=== PATIENT | female | born 1950 | race Hispanic/Latino ===

== ENCOUNTER 2019-11-16 15:22 | Emergency (ER) | payer MEDICARE, SELFPAY ==
--- NOTE | ~2019-11-16 | XR_ITS ---
EXAMINATION: XR ankle LT min 3V EXAM DATE: 11/16/2019 15:45 INDICATION: Initial encounter following injury, with pain of the left ankle. TECHNIQUE: Left ankle frontal, lateral and oblique projections obtained and reviewed. There is no pr ior study for comparison. FINDINGS: Probable acute closed posttraumatic fracture through the left radial distal metaphysis exte nding into the ankle joint, distal tibiofibular syndesmosis. This is only identified on the lateral p rojection, finding indicated for review. Overlying soft tissue swelling. IMPRESSION: Probable acute left distal fibular metaphyseal fracture into the ankle joint. Consider CT scan for confirmation. Reviewed, dictated and finalized at location A. IMPRESSION: Probable acute left distal fibular metaphyseal fracture into the an kle joint. Consider CT scan for confirmation.
--- NOTE | ~2019-11-16 | CT_ITS ---
EXAMINATION: CT LE LT wo con EXAM DATE: 11/16/2019 16:26 INDICATION: Left ankle fractures. Abnormal x-ray. TECHNIQUE: Spiral CT LE LT was performed without contrast. Axial, coronal and sagittal images were reviewed. The dose-length product (DLP) for this examination was 376.05 mGy-cm. The exposure was t ailored according to patient size (auto mA exposure control), and iterative reconstruction (ASIR) was used as additional dose reduction technique. Correlation is made to ankle x-ray same day. FINDINGS: Acute closed posttraumatic fracture of the left radial distal metaphysis extending into th e ankle mortise, without displacement. There is also a posterior malleolar acute closed posttraumatic and essentially nondisplaced fracture, with fracture line extending vertically about 1.8 cm in from the posterior malleolar cortex along the tibial plafond. The mortise relationship does appear intact. Recommend orthopedic consult. Talus, calcaneus are intact. There is an ankle joint effusion. IMPRESSION: 1. Acute left posterior malleolar/tibial plafond fracture. 2. Acute distal fibular metaphyseal fracture into mortise. Reviewed, dictated and finalized at location A.
[2019-11-16 15:29] VITALS: BP 132/81; PULSE 81; RESP 16; TEMP 36.5; O2SAT 99
--- NOTE | 2019-11-16 16:17 | ED.LOWEXIN ---
HPI - Extremity Injury (Lower) General Chief Complaint: Extremity Injury, Lower <Rosa Matthews PA-C - Last Filed: 11/16/19 18:43> Stated Complaint: TWISTED OR SPRAINED ANKLE <ROSA M Oliveros Last Filed: 11/16/19 18:43> Time Seen by Provider: 11/16/19 15:49 <Rosa Matthews PA-C - Last Filed: 11/16/19 18:43> Source: patient and family <Rosa Matthews PA-C - Last Filed: 11/16/19 18:43> Limitations: no limitations <ROSA M Oliveros Last Filed: 11/16/19 18:43> History of Present Illness HPI Narrative: Patient presents with chief complaint of left ankle pain after slipping in shower and inverting her ankle. Patient reports swelling and difficulty with weightbearing. Patient denies loss of sensation or reports pain with plantar and dorsiflexion. Patient denies prior fracture to this area. Patient reports some tenderness to lateral aspect but not the medial aspect. Patient also reports discomfort dorsally up. the extremity. Patient denies any other areas of injury. <Rosa Matthews PA-C - Last Filed: 11/16/19 18:43> Related Data Allergies/Adverse Reactions: Allergies Allergy/AdvReac Type Severity Reaction Status Date / Time acetaminophen Allergy Unknown Verified 11/16/19 15:29 <Rosa Matthews PA-C - Last Filed: 11/16/19 18:43> Review of Systems Review of Systems: Narrative: CONSTITUTIONAL: Denies fever, chills, or sweats. EYES: Denies visual changes, redness, or discharge. ENT: Denies rhinorrhea, congestion, sore throat, or otalgia. CARDIOVASCULAR: Denies chest pain, palpitations, or edema. RESPIRATORY: Denies cough or dyspnea. GASTROINTESTINAL: Denies abdominal pain, nausea, vomiting, or diarrhea. GENITOURINARY: Denies dysuria or hematuria. SKIN: Denies rash or itching. MUSCULOSKELETAL: Reports left ankle pain denies back pain or myalgia. NEUROLOGIC: Denies headache, numbness, dizziness, or weakness. PSYCHIATRIC: Denies anxiety or depression. <ROSA M Oliveros Filed: 11/16/19 18:43> [facility] Social History Social History: Social History Gender identity (if verbalized by the patient): Female <Rosa Matthews PA-C - Last Filed: 11/16/19 18:43> Exam Narrative: Exam Narrative: GENERAL: Well-appearing, well-nourished, and in no acute distress. HEAD: Normocephalic, atraumatic. EYES: PERRLA and EOMI. ENT: Nares clear, no rhinorrhea or epistaxis. Mucous membranes moist. Oropharynx without tonsillar hypertrophy exudate or other lesions. Bilateral TMs pearly [place] nonbulging NECK: Supple. No adenopathy or masses. No carotid bruits or JVD CHEST: Clear to auscultation. No respiratory distress. No wheezes rales or rhonchi HEART: Regular rate and rhythm. No murmur heard. Normal peripheral pulses. ABDOMEN: Soft, nontender, nondistended, normal active bowel sounds. EXTREMITIES: Edema to the lateral aspect of left ankle with tenderness laterally to the dorsal aspect. Pain with plantar flexion mild discomfort with dorsiflexion. No open wounds appreciated. SKIN: Warm, dry, no rash. NEURO: No focal deficits. Alert and oriented x3. PSYCH: Normal mood and affect. <Rosa Matthews PA-C - Last Filed: 11/16/19 18:43> Course Vital Signs Vital signs: Vital Signs Temperature 36.5 C 11/16/19 15:29 Pulse Rate 81 11/16/19 15:29 Respiratory Rate 16 11/16/19 15:29 Blood Pressure 132/81 11/16/19 15:29 Pulse Oximetry 99 11/16/19 15:29 Temperature 36.6 C 11/16/19 18:43 Pulse Rate 72 11/16/19 18:43 Respiratory Rate 18 11/16/19 18:43 Blood Pressure 137/75 11/16/19 18:43 Pulse Oximetry 98 11/16/19 18:43 <Rosa Matthews PA-C - Last Filed: 11/16/19 18:43> Vital Signs Temperature 36.5 C 11/16/19 15:29 Pulse Rate 81 11/16/19 15:29 Respiratory Rate 16 11/16/19 15:29 Blood Pressure 132/81 07/21/20 15:29 Pulse Oximetry 99 11/16/19 15:29 Temperature 36.6 C 11/16/19 18:43 Pulse Rate 72 11/16/19
[2019-11-16 18:43] VITALS: BP 137/75; PULSE 72; RESP 18; TEMP 36.6; O2SAT 98
== END 2019-11-16 18:44 | disposition home or self-care (01) ==
PROVIDERS: Emergency Provider Emergency Medicine
DX: S82.832A Other fracture of upper and lower end of left fibula, initial encounter for closed fracture (principal); S82.392A Other fracture of lower end of left tibia, initial encounter for closed fracture; X50.9XXA Other and unspecified overexertion or strenuous movements or postures, initial encounter
CPT/HCPCS: 29515; 73610; 73700; 99284